=== PATIENT | male | born 1980 | race American Indian/Alaskan Native ===

== ENCOUNTER 2021-04-25 16:46 | Emergency (ER) | payer SELFPAY ==
--- NOTE | 2021-04-25 17:23 | Emergency Department Report ---
ED Eye Problem HPI - General Chief complaint: Eye Problems Stated complaint: RIGHT EYE PAIN Time Seen by Provider: 04/25/21 17:04 Source: patient Mode of arrival: Ambulatory Limitations: No Limitations - History of Present Illness Initial comments: 40-year-old male presents to the ER today with complaints of right eye irritation and foreign body to his right eye. Patient states that this past Wednesday started noticing that his right eyelid has become irritated. He states that since then it has gotten more irritated, increasingly red, and he has had some white mucus discharge around his eyelid and in his eye and intermittent increased tearing. He denies any pain or blurry vision. He states that his job symptoms to a small clinic which he went to today. He states that they examined his noticed that he had an embedded foreign body in his eye and he was sent here to the ER. 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 He does not wear glasses or contacts. MD chief complaint: eye redness, eye injury, foreign body -: Sudden - Related Data Previous Rx's Medication Instructions Recorded Last Taken Type Erythromycin [Erythromycin Ophth 1 applic OP Q4H 1 Days #1 tube 04/25/21 Unknown Rx Oint] Allergies Allergy/AdvReac Type Severity Reaction Status Date / Time No Known Allergies Allergy Verified 04/25/21 16:58 ED Review of Systems ROS: Stated complaint: RIGHT EYE PAIN Other details as noted in HPI Comment: All other systems reviewed and negative Constitutional: denies: chills, fever Eyes: eye pain, eye discharge, other (eye redness, eye irritation ). denies: vision change ENT: denies: ear pain, throat pain, dental pain, hearing loss, epistaxis, congestion Respiratory: denies: cough, shortness of breath, SOB with exertion, SOB at rest, stridor, wheezing Cardiovascular: denies: chest pain, palpitations, dyspnea on exertion, edema, syncope, paroxysmal nocturnal dyspnea Gastrointestinal: denies: abdominal pain, nausea, vomiting, diarrhea, constipation, hematemesis, hematochezia Genitourinary: denies: urgency, dysuria Musculoskeletal: denies: back pain, joint swelling, arthralgia Skin: denies: rash, lesions, change in color, change in hair/nails, pruritus Neurological: denies: headache, weakness, numbness, paresthesias, confusion, abnormal gait, vertigo Psychiatric: denies: anxiety, depression, auditory hallucinations, visual hallucinations, homicidal thoughts Hematological/Lymphatic: denies: easy bleeding, easy bruising, swollen glands ED Past Medical Hx - Past Medical History Previous Medical History?: No - Surgical History Past Surgical History?: No - Medications Home Medications: Home Medications Medication Instructions Recorded Confirmed Last Taken Type Erythromycin [Erythromycin Ophth 1 applic OP Q4H 1 Days #1 tube 04/25/21 Unknown Rx Oint] ED Physical Exam - General Limitations: No Limitations General appearance: alert, in no apparent distress - Head Head exam: Present: atraumatic, normocephalic, normal inspection - Eye Eye exam: Present: PERRL, EOMI, conjunctival injection (moderate right eye ), other (small metalic appearing FB embedded cornea of right eye about 1 oclock ). Absent: scleral icterus, nystagmus, periorbital swelling, periorbital tenderness Pupils: Present: normal accommodation - ENT ENT exam: Present: normal exam, mucous membranes moist, TM's normal bilaterally - Neck Neck exam: Present: normal inspection, full ROM - Respiratory Respiratory exam: Present: normal lung sounds bilaterally. Absent: respiratory distress, wheezes, rales, rhonchi, stridor - Cardiovascular Cardiovascular Exam: Present: regular rate, normal rhythm, normal heart sounds - Neurological Exam Neurological exam: Present: alert, oriented X3, CN II-XII intact, normal gait - Psychiatric Psychiatric exam: Present: normal affect, normal mood - Skin Skin exam: Present: intact ED Course Vital Signs 04/25/21 16:59 Temperature 98.4 F Pulse Rate 64 Respiratory 16 Rate Blood Pressure 127/82 [Left] O2 Sat by Pulse 98 Oximetry - Eye Procedure Eye FB Removal: removal w/ needle, other (Embedded corneal foreign body noted around 1:00 of the right cornea) Progress: Two tetracaine drops used. Embedded corneal foreign body removed using any diabetic needle syringe. Removed with only one attempt and with complete removal of the foreign body. Fluorescein exam shows small amount of uptake only at the area of where the foreign body was embedded. No other area of abrasion, or dendritic sign or Dominique sign noted. Patient tolerated procedure well without any complications. Critical care attestation.: If time is entered above; I have spent that time in minutes in the direct care of this critically ill patient, excluding procedure time. ED Disposition Clinical Impression: Corneal foreign body, Corneal abrasion Disposition: HOME / SELF CARE / HOMELESS Is pt being admited?: No Does the pt Need Aspirin: No Condition: Stable Instructions: Eye Foreign Body, [id number], Corneal Abrasion, [id number] Additional Instructions: Use the erythromycin eye ointment as prescribed. Keep your appointment with your cad application support specialist on Wednesday for follow-up. Return to the ER if your symptoms changes or worsens in any way Prescriptions: Erythromycin [Erythromycin Ophth Oint] 1 applic OP Q4H 1 Days #1 tube Referrals: PHILIP POLLARD MD [Staff Physician] - 3-5 Days ([employer] Service Technician) Time of Disposition: 19:43 Print Language: [place]
[2021-04-25] MEDS ORDERED: TETRACAINE 0.5% OPHTH SOLN 4ML OU STA (17:59)
[2021-04-25] MEDS ORDERED: FLUORESCEIN 1 MG STRIP OP ONE (17:59)
[2021-04-25 19:52] VITALS: BP 128/76
== END 2021-04-25 19:55 | disposition home or self-care (01) ==
LOC: ED 16:46
DX: T15.01XA Foreign body in cornea, right eye, initial encounter (principal); S05.01XA Injury of conjunctiva and corneal abrasion without foreign body, right eye, initial encounter; X58.XXXA Exposure to other specified factors, initial encounter; Y93.89 Activity, other specified; Y92.89 Other specified places as the place of occurrence of the external cause; Y99.8 Other external cause status
CPT/HCPCS: 99283